=== PATIENT | male | born 2005 | race Caucasian/White ===

== ENCOUNTER 2023-12-31 09:10 | Emergency (ER) | payer OTHER ==
[~2023-12-31] VITALS: Ht 182.9 cm; Wt 84.3 kg
[2023-12-31] MEDS ORDERED: ISOVUE-370 76% 100ML VIAL As Ordered ONE (09:57)
[2023-12-31] MEDS: AMPICILLIN SOD/SULBACTAM SOD 3 GM in D5W MINI-BAG PLUS 100 ML IV ONE (10:37)
[2023-12-31] MEDS: dexAMETHasone 20MG/5ML VIAL IV STA (11:08)
[2023-12-31] MEDS: NS 1,000 ML IV ONE (13:30)
[2023-12-31] MEDS ORDERED: MEDR4PAK PO (14:03)
[2023-12-31] MEDS ORDERED: AMOX875T2 PO (14:03)
[2023-12-31 15:15] VITALS: BP 120/61; TEMP 97.8; O2SAT 97
== END 2023-12-31 15:28 | disposition home or self-care (01) ==
LOC: M ED 09:10
DX: J02.0 Streptococcal pharyngitis (principal); J36 Peritonsillar abscess; F17.290 Nicotine dependence, other tobacco product, uncomplicated
CPT/HCPCS: 70491; 87880; 96361; 96374; 96375; 99284; J0295; J1100; Q9967

== ENCOUNTER 2024-09-03 11:16 | Emergency (ER) | payer OTHER ==
[~2024-09-03] VITALS: Ht 182.9 cm; Wt 89.8 kg
[~2024-09-03 11:16] MED LIST: AMOX875T2 PO; MEDR4PAK PO
[2024-09-03 11:24] VITALS: BP 128/62; TEMP 97.9; O2SAT 100
== END 2024-09-03 15:15 | disposition left against medical advice (07) ==
LOC: M ED 11:16
DX: Z53.21 Procedure and treatment not carried out due to patient leaving prior to being seen by health care provider (principal)